=== PATIENT | female | born 1950 | race Caucasian/White ===

== ENCOUNTER 2025-06-17 08:50 | Outpatient (AMB) | payer MEDICARE, SELFPAY ==
--- NOTE | 2025-06-17 09:00 | HO.SPINEOV ---
Vital Signs 06/17/25 09:03 Height 5 ft 1 in Weight 144 lb BMI 27.2 Intake Visit Reasons: kyphoplasty consult Intake Note: Mrs. Kingsley is here today c/o back pain. MRI done at the [facility]. Overhead Cleaner Required: No Allergies amoxicillin Allergy (Severe, Verified 06/17/25 09:06) Rash ampicillin Allergy (Severe, Verified 06/17/25 09:06) Rash Physical Exam Vital Signs: BMI result Body Mass Index 27.2 Assessment & Plan Assessment & Plan (1) Compression fracture of body of thoracic vertebra: Code(s): S22.000A - Wedge compression fracture of unspecified thoracic vertebra, initial encounter for closed fracture Category: Medical Plan Dear colleague Thank you for referring Caprice Kingsley to the office today with a chief complaint of resolving per lumbar back pain. HPI: This 75-year-old female developed acute pain approximately 6 weeks ago in the upper lumbar region. Initially it was severe but over time the pain has subsided. She still has intermittent muscle spasms. She takes strength Tylenol several times a day. She is in PT which is helping alleviating her symptoms. She denies any radiating down her legs. No numbness or weakness. The following conservative treatment options were tried without success antiinflammatories, tylenol, physician guided home exercise plan, cortisone shots PMH: Hysterectomy Medications: Symbicort Allergies: Ampicillin penicillin Social history: . Retired. Nonsmoker. Physical Exam: Pleasant female. On inspection of the spine there are no obvious deformities. Motor and sensory exam are intact. Radiological Studies: An x-ray of the lumbar spine of 03/11/2025 shows a mild T12 compression fracture. Repeat x-ray of 05/30/2025 shows proximally with 60 % height loss of the T12 vertebral body. An MRI of the lumbar spine of 04/15/2025 shows hyperintensity on the STIR images at T12. Of note, she also has a grade 1 incidental L5-S1 spondylo listhesis. I repeated an x-ray of the lumbar spine which shows a stable T12 fracture. Impression/Plan: This patient has suffered an acute T12 compression fracture with routine healing. No further imaging is required. She is not a candidate for kyphoplasty. Thank you for allowing me to participate in your patients care. total time spent was 50 minutes in counseling ,coordination of plan, personal review of imaging, surgical decision making and subsequent plan Joseph Gaytan MD, PhD Spine Fellowship Trained Neurosurgeon Director, [facility] Orders: Orders XR lumbar spine 2-3V Today S22.000A - Wedge compression fracture of unspecified thoracic vertebra, initial encounter for closed fracture Coding Level of Care Code New Pt Level 4 (97590) Diagnoses Compression fracture of body of thoracic vertebra S22.000A
[2025-06-17 09:03] VITALS: BMI 27.2
== END 2025-06-17 10:48 | disposition home or self-care (01) ==
LOC: HO.HNS 08:50
PROVIDERS: PCP Internal Medicine; Visit Provider Neurological Surgery
DX: S22.000A Wedge compression fracture of unspecified thoracic vertebra, initial encounter for closed fracture (principal)
CPT/HCPCS: 99204

== ENCOUNTER 2025-06-17 08:50 | Outpatient (REF) | payer MEDICARE, SELFPAY ==
--- NOTE | ~2025-06-17 | XR_ITS ---
EXAMINATION: XR LUMBOSACRAL SPINE CLINICAL INFORMATION: S22.000A - Wedge compression fracture of unspecified thoracic vertebra, ... COMPARISON: None available. TECHNIQUE: AP and lateral views FINDINGS: There is a superior endplate compression deformity at representing 60% volume loss at T12 vertebra without gross retropulsion. There is sclerotic superior endplate compression deformity representing 20-30% volume loss at L2. There is superior endplate compression deformity at representing 10-20% volume loss at L3. No gross retropulsion. No gross malalignment. S-shaped curvature of the thoracolumbar spine. Facet joint hypertrophy at L4-5 and L5-S1. Decreased intervertebral disc height at L5-S1. XR/XR lumbar spine 2-3V IMPRESSION: Multilevel compression fracture deformities undetermined age at T12, L2 and L3. Electronically signed by: Waylon España MD 06/17/2025 11:25 AM KEVIN
== END 2025-06-17 08:51 | disposition home or self-care (01) ==
LOC: HO.HOSX 08:50
PROVIDERS: PCP Internal Medicine; Visit Provider Neurological Surgery
DX: S22.000D Wedge compression fracture of unspecified thoracic vertebra, subsequent encounter for fracture with routine healing (principal)
CPT/HCPCS: 72100; 99202

== ENCOUNTER → 2025-06-17 09:48 | Outpatient (BNV) | payer MEDICARE, SELFPAY | PROVIDERS: PCP Internal Medicine; Visit Provider Radiology Diagnostic Radiology | DX: S22.000A Wedge compression fracture of unspecified thoracic vertebra, initial encounter for closed fracture (principal) | CPT/HCPCS: 72100 ==